=== PATIENT | female | born 1990 | race Caucasian/White ===

== ENCOUNTER 2017-09-10 21:30 | Emergency (ER) | payer BC, OTHER ==
[~2017-09-10] VITALS: Ht 165.1 cm; Wt 100.4 kg
[~2017-09-10 21:30] MED LIST: ONDA4TAB7 SL
[2017-09-10 21:34] VITALS: TEMP 36.3; Ht 165.1 cm; Wt 100.4 kg
[2017-09-10] MEDS ORDERED: ALUMINUM/MAGNESIUM SUSP 30 ML UDC PO STA (22:25)
[2017-09-10] MEDS ORDERED: PANTOprazole SOD 40 MG TAB PO STA (22:25)
--- NOTE | 2017-09-10 22:29 | EMERGENCY ROOM VISIT NOTE ---
History Report prepared by Edmundibpavel: Dhruv Ugalde Under the Supervision of: Dr. Kevan Montano D.O. First contact with patient: 22:19 Chief Complaint: CHEST PAIN Stated Complaint: CHEST PAIN, TIGHTNESS, HEADACHE, CONGESTED History of Present Illness The patient is a 26 year old female who presents to the Emergency Room with complaints of persistent shooting chest pain since June 2017. She states that she has seen her PCP several times for the symptoms. She was given a pulmonary test and it was normal. She had a chest XR done and it was normal. She states that her PCP placed her on antibiotics and Prednisone and she completed the treatment. She states her chest pain was somewhat resolved while on the Prednisone, though it has returned and it is worse than before. She reports pain radiating to her arms. She notes coughing, though denies any fevers. She reports a migraine that began last night and it has not resolved. She denies any history of acid reflux. Her LNMP was September 06, 2017. Source of History: patient Onset: since June 2017 Position: chest Quality: other (shooting) Timing: other (persistent) Associated Symptoms: + cough, No fevers Review of Systems See HPI for pertinent positives & negatives. A total of 10 systems reviewed and were otherwise negative. Past Medical & Surgical Surgical Problems: (1) History of tonsillectomy Family History Diabetes mellitus Hypertension Social History Smoking Status: Current Every Day Smoker (1/2 ppd) Smokeless Tobacco Use: No Marital Status: Housing Status: lives with significant other Occupation Status: employed Current/Historical Medications Scheduled Omeprazole (Prilosec), 20 MG PO DAILY Scheduled PRN Ibuprofen (Motrin), 600 MG PO TID PRN for Pain [Rescue Inhaler], 2 PUFF INH Q4 PRN for SOB/Wheezing Allergies Coded Allergies: Sulfa Antibiotics (Verified Allergy, Mild, Mouth sores, 09/10/17) Penicillin G (Verified Allergy, Unknown, NOT SURE, 09/10/17) Physical Exam Vital Signs Date Time Temp Pulse Resp B/P (MAP) Pulse Ox O2 Delivery O2 Flow Rate FiO2 09/10/17 23:08 78 20 138/96 97 Room Air 09/10/17 22:53 86 09/10/17 22:42 Room Air 09/10/17 21:34 36.3 98 20 144/88 97 Room Air Physical Exam GENERAL: Patient is awake, alert, and in no acute distress. Patient is resting comfortably and showing no signs of anxiety EYES: The conjunctivae are clear. The pupils are round and reactive. EARS, NOSE, MOUTH AND THROAT: The nose is without any evidence of any deformity. Mucous membranes are moist tongue is midline NECK: The neck is nontender and supple. RESPIRATORY: Normal respiratory effort is noted there is no evidence of wheezing rhonchi or rales CARDIOVASCULAR: Regular rate and rhythm noted there no murmurs rubs or gallops normal S1 normal S2 GASTROINTESTINAL: The abdomen is soft. Bowel sounds are present in all quadrants. Abdomen is nontender MUSCULOSKELETAL/EXTREMITIES: There is no evidence of gross deformity full range of motion is noted in the hips and shoulders SKIN: There is no obvious evidence of any rash. There are no petechiae, pallor or cyanosis noted. NEUROLOGIC: Patient is awake alert and oriented x3 strength is symmetric patellar reflexes are 2+ bilaterally Medical Decision & Procedures ER Provider Diagnostic Interpretation: Radiology results as stated below per my review and radiologist interpretation: CHEST ONE VIEW PORTABLE HISTORY: EVALUATE RESPIRATORY DISTRESS.DYSPNEA COMPARISON: Chest 03/07/2014. FINDINGS: The lungs are clear. Cardiac silhouette is normal in size. No pleural effusions. No pneumothorax. IMPRESSION: No acute process. Electronically signed by: Logan Flood M.D. 09/10/2017 11:21 PM Dictated Date/Time: 09/10/2017 11:17 PM Laboratory Results 09/10/17 22:42 Red Blood Count 5.15, Mean Corpuscular Volume 87.0, Mean Corpuscular Hemoglobin 29.5, Mean Corpuscular Hemoglobin Concent 33.9, Mean Platelet Volume 10.0, Neutrophils (%) (Auto) 58.3, Lymphocytes (%) (Auto) 29.9, Monocytes (%) (Auto) 7.6, Eosinophils (%) (Auto) 2.5, Basophils (%) (Auto) 0.2, Neutrophils # (Auto) 6.44, Lymphocytes # (Auto) 3.29, Monocytes # (Auto) 0.84, Eosinophils # (Auto) 0.27, Basophils # (Auto) 0.02 09/10/17 22:42 Test 09/10/17 22:42 09/10/17 22:50 White Blood Count 11.02 K/uL (4.8-10.8) Red Blood Count 5.15 M/uL (4.2-5.4) Hemoglobin 15.2 g/dL (12.0-16.0) Hematocrit 44.8 % (37-47) Mean Corpuscular Volume 87.0 fL (80-100) Mean Corpuscular Hemoglobin 29.5 pg (25-34) Mean Corpuscular Hemoglobin Concent 33.9 g/dl (32-36) Platelet Count 291 K/uL (130-400) Mean Platelet Volume 10.0 fL (7.4-10.4) Neutrophils (%) (Auto) 58.3 % Lymphocytes (%) (Auto) 29.9 % Monocytes (%) (Auto) 7.6 % Eosinophils (%) (Auto) 2.5 % Basophils (%) (Auto) 0.2 % Neutrophils # (Auto) 6.44 K/uL (1.4-6.5) Lymphocytes # (Auto) 3.29 K/uL (1.2-3.4) Monocytes # (Auto) 0.84 K/uL (0.11-0.59) Eosinophils # (Auto) 0.27 K/uL (0-0.5) Basophils # (Auto) 0.02 K/uL (0-0.2) RDW Standard Deviation 44.6 fL (36.4-46.3) RDW Coefficient of Variation 14.1 % (11.5-14.5) Immature Granulocyte % (Auto) 1.5 % Immature Granulocyte # (Auto) 0.16 K/uL (0.00-0.02) Anion Gap 9.0 mmol/L (3-11) Est Creatinine Clear Calc Drug Dose 117.0 ml/min Estimated GFR () 109.6 Estimated GFR (Non- 94.6 BUN/Creatinine Ratio 12.6 (10-20) Calcium Level 8.5 mg/dl (8.5-10.1) Total Bilirubin 0.4 mg/dl (0.2-1) Aspartate Amino Transf (AST/SGOT) 10 U/L (15-37) Alanine Aminotransferase (ALT/SGPT) 29 U/L (12-78) Alkaline Phosphatase 69 U/L (45-117) Troponin I < 0.015 ng/ml (0-0.045) Total Protein 6.5 gm/dl (6.4-8.2) Albumin 3.0 gm/dl (3.4-5.0) Globulin 3.5 gm/dl (2.5-4.0) Albumin/Globulin Ratio 0.9 (0.9-2) Human Chorionic Gonadotropin, Qual NEG (NEG) Bedside D-Dimer 184 ng/mlFEU (0-450) Medications Administered Medications (Trade) Dose Ordered Sig/Kaylynn Route Start Time Stop Time Status Last Admin Dose Admin Al Hydroxide/Mg Hydroxide (Maalox Susp) 30 ml NOW STAT PO 09/10/17 22:25 09/10/17 22:26 DC 09/10/17 23:06 30 ML Pantoprazole Sodium (Protonix Tab) 40 mg NOW STAT PO 09/10/17 22:25 09/10/17 22:26 DC 09/10/17 23:06 40 MG ECG Per My Interpretation Indication: chest pain Rate (beats per minute): 69 Rhythm: normal sinus Findings: nonspecific-ST abn, no ectopy Change: Patient's EKG was interpreted by me. ED Course 2223: The patient was evaluated in room C5. A complete history and physical examination were performed. 2224: Ordered Protonix 40 mg PO and Maalox 30 ml PO []: I reassessed the patient at this time. [] is feeling better and resting comfortably. I discussed the results and treatment plan with the patient[]. I answered all pertaining questions that [] had. [] expressed understanding and verbalized agreement. [The patient will be discharged home.] Medical Decision Prior records/ancillary studies reviewed. Triage Nursing notes reviewed. The patient's history was concerning for chest pain. Differential diagnosis: Etiologies such as cardiac ischemia, aortic dissection, pulmonary embolism, pneumonia, pneumothorax, musculoskeletal, infections, pericarditis, myocarditis , esophageal rupture, gastrointestinal, as well as others were entertained. The patient is a 26-year-old female who presented to the emergency department for ongoing chest discomfort. She has had ongoing symptoms which have been consistent over the last 24 hours. Her cardiac biomarkers were negative. Patient's EKG did not reveal any acute ischemic changes. I discussed the patient's laboratory and radiographic studies with her. She was encouraged to continue all medications as prescribed and follow-up with her primary care physician as soon as possible. Otherwise she was encouraged to return to the emergency department immediately if symptoms change worsening the need arises. Medication Reconcilliation Current Medication List: was personally reviewed by me Blood Pressure Screening Patient's blood pressure: Elevated blood pressure Blood pressure disposition: Elevated BP felt to be situational Impression Primary Impression: Substernal precordial chest pain Scribe Attestation The scribe's documentation has been prepared under my direction and personally reviewed by me in its entirety. I confirm that the note above accurately reflects all work, treatment, procedures, and medical decision making performed by me. Departure Information Dispostion Home / Self-Care Prescriptions Omeprazole (PRILOSEC) 20 Mg Cap 20 MG PO DAILY, #30 CAP Prov: Kevan Montano, DO 09/10/17 Referrals No Doctor, Assigned (PCP) Forms HOME CARE DOCUMENTATION FORM, IMPORTANT VISIT INFORMATION, School Instructions Patient Instructions ED Chest Pain Atypical Unkn Cause, [facility] Additional Instructions Continue all medications as prescribed. Drink plenty of clear liquids. Consider using Maalox or Mylanta as directed for symptomatic relief. Follow-up with your family doctor as scheduled. Return to the emergency department immediately if symptoms change worsening the need arises.
[2017-09-10] MEDS ORDERED: IBUP-1450 PO (22:53)
[2017-09-10] MEDS ORDERED: RESCUE INHALER INH (22:53)
[2017-09-10 22:54] LABS: BASO % 0.2 %; BASO ABS # 0.02 K/uL (0-0.2); EOS % 2.5 %; EOS ABS # 0.27 K/uL (0-0.5); HEMATOCRIT 44.8 % (37-47); HEMOGLOBIN 15.2 g/dL (12.0-16.0); IG# 0.16 K/uL (0.00-0.02); LYMPH % 29.9 %; LYMPH ABS # 3.29 K/uL (1.2-3.4); MEAN CORPUSCULAR HEMOGLOBIN 29.5 pg (25-34); MEAN CORPUSCULAR HGB CONC 33.9 g/dl (32-36); MONO % 7.6 %; MONO ABS # 0.84 K/uL (0.11-0.59); NEUT % 58.3 %; NEUT ABS # 6.44 K/uL (1.4-6.5); PLATELET COUNT 291 K/uL (130-400); RED CELL DISTRIBUTION WIDTH CV 14.1 % (11.5-14.5); RED CELL DISTRIBUTION WIDTH SD 44.6 fL (36.4-46.3); WHITE BLOOD COUNT 11.02 K/uL (4.8-10.8)
[2017-09-10 23:08] VITALS: BP 138/96; PULSE 78; O2SAT 97
[2017-09-10 23:12] LABS: ALT/SGPT 29 U/L (12-78); AST/SGOT 10 U/L (15-37); BLOOD UREA NITROGEN 11 mg/dl (7-18); CALCIUM 8.5 mg/dl (8.5-10.1); CARBON DIOXIDE 27 mmol/L (21-32); CREATININE 0.84 mg/dl (0.60-1.20); GLUCOSE 111 mg/dl (70-99); POTASSIUM 3.6 mmol/L (3.5-5.1); SODIUM 139 mmol/L (136-145)
[2017-09-10 23:17] LABS: ALKALINE PHOSPHATASE 69 U/L (45-117); TOTAL PROTEIN 6.5 gm/dl (6.4-8.2)
--- NOTE | 2017-09-10 23:23 | DIAGNOSTIC IMAGING REPORT ---
CHEST ONE VIEW PORTABLE HISTORY: EVALUATE RESPIRATORY DISTRESS.DYSPNEA COMPARISON: Chest 03/07/2014. FINDINGS: The lungs are clear. Cardiac silhouette is normal in size. No pleural effusions. No pneumothorax. IMPRESSION: No acute process. Electronically signed by: Logan Flood M.D. 09/10/2017 11:21 PM Dictated Date/Time: 09/10/2017 11:17 PM
[2017-09-10] MEDS ORDERED: OMEP20CA9 PO (23:29)
== END 2017-09-10 23:36 | disposition home or self-care (01) ==
LOC: C.EDB 21:31 → C.EDC 23:36
DX: R07.2 Precordial pain (principal); F17.200 Nicotine dependence, unspecified, uncomplicated; Z90.89 Acquired absence of other organs; Z83.3 Family history of diabetes mellitus; Z82.49 Family history of ischemic heart disease and other diseases of the circulatory system

== ENCOUNTER 2018-02-23 17:34 | Emergency (ER) | payer OTHER ==
[~2018-02-23] VITALS: Ht 165.1 cm; Wt 86.0 kg
[~2018-02-23 17:34] MED LIST changes: +IBUP-1450 PO; -ONDA4TAB7 SL; +RESCUE INHALER INH
[2018-02-23 17:40] VITALS: TEMP 36.5; Ht 165.1 cm; Wt 86.0 kg
[2018-02-23] MEDS ORDERED: NAPR-22 PO (18:23)
[2018-02-23] MEDS ORDERED: LIDO/EPINEPHRINE/SOD BICARB 20 ML VIAL INFIL ONE (19:00)
[2018-02-23] MEDS ORDERED: AMOXICILLIN/CLAVULANATE TAB 875 MG TAB PO ONE (19:45)
[2018-02-23] MEDS ORDERED: CLINDAMYCIN HCL 150 MG CAP PO ONE (19:45)
[2018-02-23] MEDS ORDERED: CLC/300 PO (19:47)
[2018-02-23] MEDS ORDERED: AMOX875T PO (19:47)
--- NOTE | 2018-02-23 19:48 | EMERGENCY ROOM VISIT NOTE ---
ED Visit Note First contact with patient: 17:45 CHIEF COMPLAINT: Left-sided vaginal pain 4 days HISTORY OF PRESENT ILLNESS: Patient is a 27-year-old female who presents the emergency department complaint by female friend for evaluation of a suspected Bartholin abscess. She has a left-sided vaginal pain, it started on Monday and was mild, but has progressively worsened throughout the week. She tried soaking in a hot tub. She has not taken any medication for her symptoms. Detective for Monday the sixth, however today her symptoms markedly worsened , and she was having pain with movement or sitting. She rates her discomfort a 7/10. She reports that she was treated in mid January for a Bartholin's gland abscess on the right hand side, which was treated with an I&D and the senior mechanical project engineer office. She was not packed or placed on any antibiotics and her symptoms resolved. She denies any urinary symptoms. No vaginal discharge. Last menstrual period was 02/11 and she denies any chance of . She does not have any concerns regarding sexually transmitted infections. She notes that the area in question on the left feels a little higher up than the area that was involved on the right-hand side. She denies any constitutional signs of illness including fever, chills or malaise. REVIEW OF SYSTEMS: Review of systems as per HPI. All other systems reviewed were negative. 10 systems reviewed. PMH: Electronic medical records are reviewed and summarized as above/below. See Problem List. SOCIAL HISTORY: Patient lives at home with her spouse. Employed. She does not smoke. PHYSICAL EXAM: Vital Signs: Reviewed Nurse's notes. CONSTITUTIONAL: Patient is a well-appearing 27-year-old female who is awake and alert and in no acute distress. : Examination of the external genitalia note tenderness and fullness of the left mid labia minora. There is active purulent drainage noted. Examination of the indroitus note small, pinpoint area on the inner aspect of the left vaginal wall with purulent drainage present. Palpation of the abscess increases drainage. A nurse was present as a health and safety technician during the examination. EMERGENCY DEPARTMENT COURSE: The patient was seen and evaluated as above. On exam she does appear to have a Bartholin gland abscess on the left. There is already active drainage noted, however this does appear to be incompletely decompressing the abscess. Options were discussed with the patient and she was agreeable to proceed with I&D with possible Word catheter placement. The patient external genitalia was cleansed with Betadine and the area in question was anesthetized with 1% buffered lidocaine with epinephrine. A small stab wound was made with an 11 blade and more purulent/bloody material drained and was able to be expressed with pressure. Cultures were obtained and are pending. I did attempt to thread a Word catheter, but was unsuccessful. The area was not amenable to packing. Given that this is the patient's second abscess in less than a month, I have elected to place her on antibiotics pending her evaluation with gynecology in 3 days. Due to her sulfa allergy she was placed on Augmentin and clindamycin. She reports an unclear allergy to penicillin but states that she has tolerated amoxicillin in the past. The patient was encouraged to do warm soapy water soaks/sitz baths. She is welcome to return to the emergency department at any point for worsening symptoms. Differential diagnoses included Bartholin's cyst versus abscess, PID, cervicitis , mass or malignancy, labial abscess, among others. Medication reconciliation: I attest that I have personally reviewed the patient' s current medication list. Blood pressure screening: Patient was found to have a slightly elevated blood pressure due to circumstances. I do not believe that the patient requires hypertension monitoring. Problem List Medical Problems: (1) Substernal precordial chest pain Status: Resolved Surgical Problems: (1) History of tonsillectomy Status: Resolved Current/Historical Medications Scheduled Amoxicillin & Pot Clavulanate (Augmentin 875-125 mg), 1 TAB PO BID Clindamycin HCl (Clindamycin HCl), 1 CAP PO QID Naproxen (Naprosyn), 500 MG PO BID Scheduled PRN Ibuprofen (Motrin), 600 MG PO TID PRN for Pain Allergies Coded Allergies: Sulfa Antibiotics (Verified Allergy, Mild, Mouth sores, 02/23/18) Penicillin G (Verified Allergy, Unknown, NOT SURE, 02/23/18) Vital Signs Date Time Temp Pulse Resp B/P (MAP) Pulse Ox O2 Delivery O2 Flow Rate FiO2 02/23/18 20:12 98 18 130/98 96 02/23/18 17:40 36.5 107 16 147/94 96 Room Air Laboratory Results Test 02/23/18 19:35 Medications Administered Medications (Trade) Dose Ordered Sig/Kaylynn Route Start Time Stop Time Status Last Admin Dose Admin Amoxicillin/ Clavulanate Potassium (Augmentin Tab) 875 mg ONE ONCE PO 02/23/18 19:45 02/23/18 19:46 DC 02/23/18 20:09 875 MG Clindamycin HCl (Cleocin Cap) 300 mg ONE ONCE PO 02/23/18 19:45 02/23/18 19:46 DC 02/23/18 20:08 300 MG Departure Information Impression Primary Impression: Bartholin's gland abscess Prescriptions Clindamycin HCl (Clindamycin HCl) 300 Mg Cap 1 CAP PO QID for 7 Days, #28 CAP Prov: Negrita Mcclure PA 02/23/18 Amoxicillin & Pot Clavulanate (Augmentin 875-125 mg) 1 Tab Tab 1 TAB PO BID, #14 TAB Prov: Negrita Mcclure PA 02/23/18 Referrals Usha Aguilar M.D. (PCP) Patient Instructions [facility] Additional Instructions Amoxicillin Clavulanate (Augmentin) 875mg: Take one pill twice daily for 7 days for your infection. All antibiotics can cause diarrhea. If this occurs and you feel worse or it does not resolve in 1-2 days follow up with your doctor or return to the Emergency Department as this could be signs of serious underlying problems. Any medication can cause an allergic reaction, stop the pills immediately and return to the ER for rash, hives, breathing difficulties, or swelling. Clindamycin 300mg: Take one pill 4 times daily for seven days for your infection. All antibiotics can cause diarrhea. If this occurs and you feel worse or it does not resolve in 1-2 days follow up with your doctor or return to the Emergency Department as this could be signs of serious underlying problems. Any medication can cause an allergic reaction, stop the pills immediately and return to the ER for rash, hives, breathing difficulties, or swelling. Ibuprofen(Motrin, Advil) may be used for fever or pain. Use 600mg every six hours as needed. Take with food. Avoid using more than 2400mg in a 24 hour period. Do not use 2400mg per day for more than three consecutive days without physician direction. Prolonged inappropriate use can lead to stomach upset or ulcers. (AND/OR) Acetaminophen(Tylenol) may be used for fever or pain. Use 1000mg every six hours as needed. Avoid using more than 3000mg in a 24 hour period. Warm compresses/warm soaks/sitz baths to the affected area 4 times daily for 15- 20 minutes. Rest and drink plenty of fluids. Continue current medications. Return to the ER for severe pain, persistent fevers, spreading redness, or any worsening of your condition. Follow up with your senior mechanical project engineer as you have scheduled on Monday for recheck.
[2018-02-23 20:12] VITALS: BP 130/98; PULSE 98; O2SAT 96
--- NOTE | 2018-02-26 18:54 | Pharmacy Progress Note ---
ED Pharmacist Culture FollowUp Date of Service: Feb 26, 2018. Coag negative Staph and Prevotella isolated from labial abscess culture. Both of these organisms are part of the normal juan (thus they are possibly contaminants), but also can cause infection. Patient was sent home with Augmentin and clindamycin, which may be appropriate based on these culture results, however no sensitivities are to follow for either isolate. Case discussed with Negrita Mcclure PA-C, who noted patient was to follow-up with SALES OPERATIONS ANALYST. Therefore no further intervention is required as these are likely contaminants and even if this represented true infection, the current regimen is likely to be appropriate, and follow-up is already in place.
== END 2018-02-23 20:12 | disposition home or self-care (01) ==
LOC: C.EDB 17:36 → C.EDD 20:12
DX: N75.1 Abscess of Bartholin's gland (principal); Z88.2 Allergy status to sulfonamides; Z88.0 Allergy status to penicillin